=== PATIENT | male | born 1965 | race Caucasian/White ===

== ENCOUNTER 2022-08-31 12:43 | Inpatient (IN) | payer MEDICARE, MEDICAID ==
[~2022-08-31] VITALS: Ht 172.7 cm; Wt 93.3 kg
[2022-08-31 13:53] LABS: Basophils # (auto) 0 10 ^3/uL (0-0.2); Basophils % (auto) 0.4 % (0.0-2.0); Eosinophils # (auto) 0.4 10 ^3/uL (0-0.8); Hemoglobin 7.3 g/dL (13.5-17.5); Lymphocytes # (auto) 0.6 10 ^3/uL (0.4-5.4); Monocytes # (auto) 0.6 10 ^3/uL (0-1.3)
[2022-08-31 13:56] LABS: Eosinophils % (auto) 6.7 % (0.0-7.0); Hematocrit 21.6 % (41.0-53.0); Lymphocytes % (auto) 8.9 % (10.0-50.0); Mean Corpuscular Hemoglobin 33.2 pg (28.0-32.0); Mean Corpuscular Hgb Conc. 33.8 g/dL (32.0-36.0); Mean Corpuscular Volume 98.2 fL (80.0-100.0); Monocytes % (auto) 9.1 % (0.0-12.0); Neutrophils % (auto) 74.9 % (37.0-80.0); Nucleated Red Blood Cells % 0.1 %; White Blood Cell 6.7 10^3/uL (4.4-10.8)
[2022-08-31 14:20] LABS: Potassium 4.4 mmol/L (3.5-5.1)
[2022-08-31 14:21] LABS: Albumin 2.8 g/dL (3.4-5.0); BUN/Creatinine Ratio 6.9 (10.0-20.0); Calcium 8.8 mg/dL (8.5-10.1); Total Protein 7.6 g/dL (6.4-8.2)
[2022-08-31] MEDS ORDERED: AZITHROMYCIN 500MG/ 250ML 250 ML IV ONE (16:30)
[2022-08-31] MEDS ORDERED: cefTRIAXone 1GM/50ML D5W 50 ML IV ONE (16:30)
[2022-08-31] MEDS ORDERED: LABETALOL HCL 5 MG/ML 4ML SYRINGE IV ONE (16:45)
[2022-08-31] MEDS ORDERED: IPRATROPIUM BROM 0.5 MG/2.5ML INH SOL NEB PRN (17:15)
[2022-08-31] MEDS ORDERED: ALBUTEROL SULF 2.5 MG/0.5ML(0.5%) NEB SOLN NEB PRN (17:15)
[2022-08-31] MEDS ORDERED: MORPHINE SULFATE INJ 2 MG/ml SYRG IV PRN (17:15)
[2022-08-31] MEDS ORDERED: NITROGLYCERIN 0.4 MG SL TAB SL PRN (17:15)
[2022-08-31] MEDS: hydrALAZINE HCL 20 MG/ML VL IV PRN (17:39)
[2022-08-31] MEDS: IPRATROPIUM BROM 0.5 MG/2.5ML INH SOL NEB SCH (18:00)
[2022-08-31] MEDS: ALBUTEROL SULF 2.5 MG/0.5ML(0.5%) NEB SOLN NEB SCH (18:00)
[2022-08-31 18:02] VITALS: BP 187/84
[2022-08-31] MEDS ORDERED: CLON0.1T PO (18:15)
[2022-08-31] MEDS ORDERED: APIX5TAB PO (18:15)
[2022-08-31] MEDS ORDERED: PANT40TA2 PO (18:15)
[2022-08-31] MEDS ORDERED: CARV25TA55 PO (18:15)
[2022-08-31 18:17] LABS: Cholesterol 154 mg/dL (< 200)
[2022-08-31 18:19] LABS: HDL Cholesterol 25 mg/dL (40-59); LDL Cholesterol 120 mg/dL (< 100); Triglycerides 88 mg/dL (< 150)
[2022-08-31] MEDS: ONDANSETRON HCL 4 MG/2 ML VIAL IV PRN (22:33)
[2022-08-31] MEDS: HEPARIN SODIUM (PORCINE) 5000 UNITS/ML 1ML VIAL SC SCH (22:47)
[2022-09-01] MEDS: ALBUTEROL SULF 2.5 MG/0.5ML(0.5%) NEB SOLN NEB SCH ×4 (00:05→18:50)
[2022-09-01] MEDS: IPRATROPIUM BROM 0.5 MG/2.5ML INH SOL NEB SCH ×4 (00:05→18:50)
[2022-09-01 05:37] LABS: Basophils # (auto) 0 10 ^3/uL (0-0.2); Eosinophils # (auto) 0.4 10 ^3/uL (0-0.8); Hemoglobin 7.2 g/dL (13.5-17.5); Lymphocytes # (auto) 0.6 10 ^3/uL (0.4-5.4); Monocytes # (auto) 0.6 10 ^3/uL (0-1.3); Monocytes % (auto) 9.5 % (0.0-12.0); Neutrophils # (auto) 4.3 10 ^3/uL (1.6-8.6); Red Cell Distribution Width 15.6 % (11.8-14.3)
[2022-09-01 05:41] LABS: Basophils % (auto) 0.7 % (0.0-2.0); Eosinophils % (auto) 6.9 % (0.0-7.0); Hematocrit 20.5 % (41.0-53.0); Lymphocytes % (auto) 9.7 % (10.0-50.0); Mean Corpuscular Hemoglobin 33.4 pg (28.0-32.0); Mean Corpuscular Hgb Conc. 35.1 g/dL (32.0-36.0); Mean Corpuscular Volume 95.2 fL (80.0-100.0); Neutrophils % (auto) 73.2 % (37.0-80.0); Red Blood Cells 2.16 10^6/uL (4.5-5.90); White Blood Cell 5.8 10^3/uL (4.4-10.8)
[2022-09-01 06:03] LABS: % Iron Saturation 34.5 % (20-55)
[2022-09-01 06:05] LABS: Albumin 2.8 g/dL (3.4-5.0); Calcium 8.5 mg/dL (8.5-10.1); Potassium 4.4 mmol/L (3.5-5.1)
[2022-09-01 06:10] LABS: BUN/Creatinine Ratio 6.8 (10.0-20.0); Bilirubin, Total 1.7 mg/dL (0.2-1.0); Total Protein 7.5 g/dL (6.4-8.2)
[2022-09-01] MEDS: cefTRIAXone 1GM/50ML D5W 50 ML IV SCH (09:54)
[2022-09-01] MEDS: ONDANSETRON HCL 4 MG/2 ML VIAL IV PRN (09:55)
[2022-09-01] MEDS: HEPARIN SODIUM (PORCINE) 5000 UNITS/ML 1ML VIAL SC SCH ×2 (09:56→21:54)
[2022-09-01] MEDS: AZITHROMYCIN 500MG/ 250ML 250 ML IV SCH (13:41)
[2022-09-01 14:39] VITALS: BP 105/44
[2022-09-01 16:00] VITALS: BP 105/44
[2022-09-01 16:52] LABS: Free T4 (Free Thyroxine) 1.24 ng/dL (0.89-1.76)
[2022-09-01 16:53] LABS: Folate (Folic Acid) 7.47 ng/mL (5.38-24)
[2022-09-01 17:00] VITALS: BP 158/74
[2022-09-01] MEDS: hydrALAZINE HCL 20 MG/ML VL IV PRN (18:16)
[2022-09-01] MEDS ORDERED: EPOETIN ALFA-EPBX 4,000 UNIT/ML VIAL SC ONE (21:00)
[2022-09-01 22:00] VITALS: BP 138/63
[2022-09-02] VITALS (8 sets, daily range): BP systolic 116–182; BP diastolic 51–85
[2022-09-02] MEDS: IPRATROPIUM BROM 0.5 MG/2.5ML INH SOL NEB SCH ×4 (00:56→18:39)
[2022-09-02] MEDS: ALBUTEROL SULF 2.5 MG/0.5ML(0.5%) NEB SOLN NEB SCH ×4 (00:56→18:39)
[2022-09-02] MEDS: LEVOTHYROXINE SODIUM 25 MCG TAB PO SCH (06:20)
[2022-09-02 06:36] LABS: Basophils # (auto) 0 10 ^3/uL (0-0.2); Basophils % (auto) 0.5 % (0.0-2.0); Hemoglobin 7.2 g/dL (13.5-17.5); Lymphocytes # (auto) 0.6 10 ^3/uL (0.4-5.4); Neutrophils # (auto) 3.8 10 ^3/uL (1.6-8.6); Red Cell Distribution Width 15.7 % (11.8-14.3); White Blood Cell 5.4 10^3/uL (4.4-10.8)
[2022-09-02 06:38] LABS: Eosinophils # (auto) 0.3 10 ^3/uL (0-0.8); Hematocrit 21.1 % (41.0-53.0); Lymphocytes % (auto) 11.1 % (10.0-50.0); Mean Corpuscular Hemoglobin 32.5 pg (28.0-32.0); Mean Corpuscular Volume 95.7 fL (80.0-100.0); Monocytes # (auto) 0.7 10 ^3/uL (0-1.3); Monocytes % (auto) 12.4 % (0.0-12.0); Red Blood Cells 2.21 10^6/uL (4.5-5.90)
[2022-09-02] MEDS: ASPirin 81 mg TAB PO SCH (09:18)
[2022-09-02] MEDS: cloNIDine HCL 0.1 MG TAB PO PRN (09:20)
[2022-09-02] MEDS: cefTRIAXone 1GM/50ML D5W 50 ML IV SCH (09:24)
[2022-09-02] MEDS: AZITHROMYCIN 500MG/ 250ML 250 ML IV SCH (09:24)
[2022-09-02] MEDS: HEPARIN SODIUM (PORCINE) 5000 UNITS/ML 1ML VIAL SC SCH ×2 (09:35→22:36)
[2022-09-02 12:04] LABS: Hepatitis A Ab IgM Negative; Hepatitis B Core IgM Negative
[2022-09-02 12:05] LABS: Hepatitis C Antibody Negative (Negative)
[2022-09-02] MEDS ORDERED: METOPROLOL SUCCINATE XL 50 MG TAB PO ONE (12:45)
[2022-09-02] MEDS ORDERED: LOSARTAN POTASSIUM 25 MG TAB PO ONE (12:45)
[2022-09-02] MEDS: hydrALAZINE HCL 20 MG/ML VL IV PRN (16:51)
[2022-09-02] MEDS: ATORVASTATIN 20 MG TAB PO SCH (22:29)
[2022-09-03] VITALS (11 sets, daily range): BP systolic 119–182; BP diastolic 60–95
[2022-09-03] MEDS: ALBUTEROL SULF 2.5 MG/0.5ML(0.5%) NEB SOLN NEB SCH ×4 (00:23→19:01)
[2022-09-03] MEDS: IPRATROPIUM BROM 0.5 MG/2.5ML INH SOL NEB SCH ×4 (00:23→19:01)
[2022-09-03] MEDS: LEVOTHYROXINE SODIUM 25 MCG TAB PO SCH (06:47)
[2022-09-03 07:12] LABS: Basophils # (auto) 0 10 ^3/uL (0-0.2); Eosinophils # (auto) 0.5 10 ^3/uL (0-0.8); Hemoglobin 7.3 g/dL (13.5-17.5); Lymphocytes # (auto) 0.7 10 ^3/uL (0.4-5.4); Lymphocytes % (auto) 11.3 % (10.0-50.0); Monocytes # (auto) 0.7 10 ^3/uL (0-1.3); Neutrophils # (auto) 4.2 10 ^3/uL (1.6-8.6); Nucleated Red Blood Cells % 0.1 %
[2022-09-03 07:14] LABS: Basophils % (auto) 0.6 % (0.0-2.0); Eosinophils % (auto) 7.9 % (0.0-7.0); Hematocrit 21.6 % (41.0-53.0); Mean Corpuscular Hemoglobin 32.6 pg (28.0-32.0); Mean Corpuscular Hgb Conc. 33.6 g/dL (32.0-36.0); Mean Corpuscular Volume 96.8 fL (80.0-100.0); Monocytes % (auto) 11.5 % (0.0-12.0); Neutrophils % (auto) 68.7 % (37.0-80.0); Red Blood Cells 2.23 10^6/uL (4.5-5.90); Red Cell Distribution Width 15.8 % (11.8-14.3); White Blood Cell 6.1 10^3/uL (4.4-10.8)
[2022-09-03 07:23] LABS: BUN/Creatinine Ratio 5.6 (10.0-20.0); Calcium 8.4 mg/dL (8.5-10.1); Potassium 4.8 mmol/L (3.5-5.1)
[2022-09-03] MEDS: HEPARIN SODIUM (PORCINE) 5000 UNITS/ML 1ML VIAL SC SCH ×2 (08:17→21:16)
[2022-09-03] MEDS: cefTRIAXone 1GM/50ML D5W 50 ML IV SCH (08:33)
[2022-09-03] MEDS: ASPirin 81 mg TAB PO SCH (08:33)
[2022-09-03] MEDS ORDERED: LOSARTAN POTASSIUM 25 MG TAB PO SCH (10:00)
[2022-09-03] MEDS: AZITHROMYCIN 500MG/ 250ML 250 ML IV SCH (10:29)
[2022-09-03] MEDS: METOPROLOL SUCCINATE XL 50 MG TAB PO SCH (10:30)
[2022-09-03 10:57] LABS: INR 1.39 (0.9-1.15); Partial Thromboplastin Time 32.7 sec (24.6-33.4)
[2022-09-03] MEDS: hydrALAZINE HCL 20 MG/ML VL IV PRN (14:51)
[2022-09-03] MEDS ORDERED: ANGIOMAX 250 MG VIAL IV ONE (15:58)
[2022-09-03] MEDS ORDERED: MIDAZOLAM HCL 2MG/2ML 2ml VIAL (1mg/ml) ONE (15:58)
[2022-09-03] MEDS ORDERED: fentaNYL CITRATE 100 MCG/2 ML VL ONE (15:58)
[2022-09-03] MEDS ORDERED: LIDOCAINE 2%HCL (LOCAL ANESTH.) INJ 20ML MDV ONE (15:59)
[2022-09-03] MEDS ORDERED: SODIUM CHL 0.9% 0 ML ONE (15:59)
[2022-09-03] MEDS ORDERED: IOHEXOL 350 MG/ML 500ML BOTTLE IJ ONE (16:01)
[2022-09-03] MEDS: ATORVASTATIN 20 MG TAB PO SCH (21:12)
[2022-09-03] MEDS: SACUBITRIL-VALSARTAN 24mg/26mg TAB PO SCH (21:12)
[2022-09-03] MEDS: ONDANSETRON HCL 4 MG/2 ML VIAL IV PRN (21:16)
[2022-09-04] MEDS: ALBUTEROL SULF 2.5 MG/0.5ML(0.5%) NEB SOLN NEB SCH ×4 (00:33→19:24)
[2022-09-04] MEDS: IPRATROPIUM BROM 0.5 MG/2.5ML INH SOL NEB SCH ×4 (00:34→19:24)
[2022-09-04] MEDS: ONDANSETRON HCL 4 MG/2 ML VIAL IV PRN ×3 (02:49→13:29)
[2022-09-04 05:00] VITALS: BP_SYST 151; BP_SYST 160; BP_SYST 162; BP_DIAS 74; BP_DIAS 81; BP_DIAS 90
[2022-09-04] MEDS: LEVOTHYROXINE SODIUM 25 MCG TAB PO SCH (06:34)
[2022-09-04 09:00] VITALS: BP_SYST 165; BP_SYST 168; BP_SYST 173; BP_DIAS 70; BP_DIAS 76; BP_DIAS 82
[2022-09-04] MEDS: cefTRIAXone 1GM/50ML D5W 50 ML IV SCH (09:08)
[2022-09-04] MEDS: ASPirin 81 mg TAB PO SCH (09:10)
[2022-09-04] MEDS: AZITHROMYCIN 500MG/ 250ML 250 ML IV SCH (09:10)
[2022-09-04] MEDS: SACUBITRIL-VALSARTAN 24mg/26mg TAB PO SCH ×2 (09:10→22:32)
[2022-09-04] MEDS: METOPROLOL SUCCINATE XL 50 MG TAB PO SCH (09:10)
[2022-09-04] MEDS: HEPARIN SODIUM (PORCINE) 5000 UNITS/ML 1ML VIAL SC SCH ×2 (09:14→22:38)
[2022-09-04 09:54] LABS: BUN/Creatinine Ratio 5.4 (10.0-20.0); Calcium 8.5 mg/dL (8.5-10.1); Potassium 4.8 mmol/L (3.5-5.1)
[2022-09-04 12:48] LABS: Urine Bacteria NONE SEEN /hpf (None Seen); Urine Blood 2+ /uL (Negative); Urine Budding Yeast MODERATE /hpf (None Seen); Urine Specific Gravity 1.017 (1.001-1.035); Urine WBC 2862 /hpf (0 - 3); Urine WBC Clumps PRESENT /hpf (None Seen)
[2022-09-04 13:00] VITALS: BP_SYST 139; BP_SYST 150; BP_SYST 167; BP_DIAS 65; BP_DIAS 76; BP_DIAS 83
[2022-09-04 17:00] VITALS: BP_SYST 136; BP_SYST 145; BP_SYST 155; BP_DIAS 66; BP_DIAS 81
[2022-09-04] MEDS: PROMETHAZINE HCL 25 MG/ML 1ML IV PRN (17:48)
[2022-09-04 22:00] VITALS: BP_SYST 130; BP_SYST 137; BP_SYST 172; BP_DIAS 60; BP_DIAS 68; BP_DIAS 74
[2022-09-04] MEDS: ATORVASTATIN 20 MG TAB PO SCH (22:32)
[2022-09-04] MEDS: hydrALAZINE HCL 20 MG/ML VL IV PRN (23:53)
[2022-09-05] MEDS: PROMETHAZINE HCL 25 MG/ML 1ML IV PRN (02:33)
[2022-09-05 05:00] VITALS: BP_SYST 150; BP_SYST 154; BP_SYST 155; BP_SYST 173; BP_DIAS 65; BP_DIAS 71; BP_DIAS 77; BP_DIAS 83
[2022-09-05] MEDS: LEVOTHYROXINE SODIUM 25 MCG TAB PO SCH (06:30)
[2022-09-05] MEDS: ALBUTEROL SULF 2.5 MG/0.5ML(0.5%) NEB SOLN NEB SCH ×3 (06:44→18:00)
[2022-09-05] MEDS: IPRATROPIUM BROM 0.5 MG/2.5ML INH SOL NEB SCH ×3 (06:44→18:00)
[2022-09-05] MEDS ORDERED: SODIUM CHL 0.9% 1000 ML BAG XX ONE (07:00)
[2022-09-05] MEDS: SACUBITRIL-VALSARTAN 24mg/26mg TAB PO SCH ×2 (08:56→22:33)
[2022-09-05] MEDS: ASPirin 81 mg TAB PO SCH (08:56)
[2022-09-05] MEDS: METOPROLOL SUCCINATE XL 50 MG TAB PO SCH (08:57)
[2022-09-05 09:00] VITALS: BP 168/81
[2022-09-05] MEDS: cefTRIAXone 1GM/50ML D5W 50 ML IV SCH (09:56)
[2022-09-05] MEDS: ONDANSETRON HCL 4 MG/2 ML VIAL IV PRN (10:52)
[2022-09-05] MEDS: AZITHROMYCIN 500MG/ 250ML 250 ML IV SCH (11:41)
[2022-09-05] MEDS ORDERED: DOCUSATE SOD 100 MG CAP PO PRN (12:00)
[2022-09-05] MEDS ORDERED: POLYETHYLENE GLYCOL 17 GM PWDR PO PRN (12:00)
[2022-09-05] MEDS ORDERED: DOCUSATE SOD 100 MG CAP PO ONE (12:00)
[2022-09-05] MEDS ORDERED: POLYETHYLENE GLYCOL 17 GM PWDR PO ONE (12:00)
[2022-09-05] MEDS: HEPARIN SODIUM (PORCINE) 5000 UNITS/ML 1ML VIAL SC SCH ×2 (12:18→22:30)
[2022-09-05 13:00] VITALS: BP 166/61
[2022-09-05] MEDS: cloNIDine HCL 0.1 MG TAB PO PRN (13:10)
[2022-09-05 17:00] VITALS: BP 172/70
[2022-09-05] MEDS ORDERED: EPOETIN ALFA-EPBX 4,000 UNIT/ML VIAL SC ONE (21:00)
[2022-09-05 22:00] VITALS: BP 169/76
[2022-09-05] MEDS: ATORVASTATIN 20 MG TAB PO SCH (22:33)
[2022-09-06] MEDS: hydrALAZINE HCL 20 MG/ML VL IV PRN ×2 (00:01→05:58)
[2022-09-06 05:00] VITALS: BP 151/67
[2022-09-06 05:54] LABS: BUN/Creatinine Ratio 4.5 (10.0-20.0); Calcium 8.7 mg/dL (8.5-10.1); Potassium 4.3 mmol/L (3.5-5.1)
[2022-09-06] MEDS: LEVOTHYROXINE SODIUM 25 MCG TAB PO SCH (05:59)
[2022-09-06] MEDS: IPRATROPIUM BROM 0.5 MG/2.5ML INH SOL NEB SCH ×3 (06:29→20:01)
[2022-09-06] MEDS: ALBUTEROL SULF 2.5 MG/0.5ML(0.5%) NEB SOLN NEB SCH ×3 (06:29→20:01)
[2022-09-06 08:00] VITALS: BP 153/77
[2022-09-06 09:00] VITALS: BP 153/77
[2022-09-06] MEDS: cefTRIAXone 1GM/50ML D5W 50 ML IV SCH (09:05)
[2022-09-06] MEDS: SACUBITRIL-VALSARTAN 24mg/26mg TAB PO SCH ×2 (09:07→21:33)
[2022-09-06] MEDS: METOPROLOL SUCCINATE XL 50 MG TAB PO SCH (09:08)
[2022-09-06] MEDS: ASPirin 81 mg TAB PO SCH (09:08)
[2022-09-06] MEDS: HEPARIN SODIUM (PORCINE) 5000 UNITS/ML 1ML VIAL SC SCH ×2 (09:19→21:42)
[2022-09-06] MEDS: AZITHROMYCIN 500MG/ 250ML 250 ML IV SCH (10:17)
[2022-09-06 13:00] VITALS: BP 148/71
[2022-09-06 17:00] VITALS: BP 140/71
[2022-09-06 21:00] VITALS: BP 140/71
[2022-09-06] MEDS: ATORVASTATIN 20 MG TAB PO SCH (21:34)
[2022-09-07] MEDS: IPRATROPIUM BROM 0.5 MG/2.5ML INH SOL NEB SCH ×2 (06:06→12:50)
[2022-09-07] MEDS: ALBUTEROL SULF 2.5 MG/0.5ML(0.5%) NEB SOLN NEB SCH ×2 (06:06→12:50)
[2022-09-07 06:08] VITALS: BP 150/76
[2022-09-07 06:36] LABS: Basophils # (auto) 0 10 ^3/uL (0-0.2); Basophils % (auto) 0.8 % (0.0-2.0); Eosinophils # (auto) 0.4 10 ^3/uL (0-0.8); Eosinophils % (auto) 7.2 % (0.0-7.0); Hematocrit 22.2 % (41.0-53.0); Hemoglobin 7.7 g/dL (13.5-17.5); Lymphocytes # (auto) 0.7 10 ^3/uL (0.4-5.4); Lymphocytes % (auto) 12.2 % (10.0-50.0); Mean Corpuscular Hemoglobin 33.7 pg (28.0-32.0); Mean Corpuscular Hgb Conc. 34.8 g/dL (32.0-36.0); Mean Corpuscular Volume 96.8 fL (80.0-100.0); Monocytes # (auto) 0.7 10 ^3/uL (0-1.3); Monocytes % (auto) 12.6 % (0.0-12.0); Neutrophils # (auto) 3.8 10 ^3/uL (1.6-8.6); Neutrophils % (auto) 67.2 % (37.0-80.0); Nucleated Red Blood Cells % 0.5 %; Red Blood Cells 2.29 10^6/uL (4.5-5.90); Red Cell Distribution Width 15.9 % (11.8-14.3); White Blood Cell 5.6 10^3/uL (4.4-10.8)
[2022-09-07] MEDS: LEVOTHYROXINE SODIUM 25 MCG TAB PO SCH (06:38)
[2022-09-07] MEDS ORDERED: SODIUM CHL 0.9% 1000 ML BAG XX ONE (07:00)
[2022-09-07 07:09] LABS: BUN/Creatinine Ratio 4.6 (10.0-20.0); Potassium 4.4 mmol/L (3.5-5.1)
[2022-09-07 08:00] VITALS: BP 180/86
[2022-09-07 09:00] VITALS: BP 180/86
[2022-09-07] MEDS: cefTRIAXone 1GM/50ML D5W 50 ML IV SCH (09:11)
[2022-09-07] MEDS: ASPirin 81 mg TAB PO SCH (09:12)
[2022-09-07] MEDS: SACUBITRIL-VALSARTAN 24mg/26mg TAB PO SCH (10:00)
[2022-09-07] MEDS: METOPROLOL SUCCINATE XL 50 MG TAB PO SCH (10:00)
[2022-09-07] MEDS: HEPARIN SODIUM (PORCINE) 5000 UNITS/ML 1ML VIAL SC SCH (10:00)
[2022-09-07 13:00] VITALS: BP_SYST 110; BP_SYST 157; BP_DIAS 55; BP_DIAS 72
[2022-09-07 13:32] VITALS: BP 157/72
[2022-09-07 16:56] VITALS: BP 167/77
[2022-09-07] MEDS ORDERED: EPOETIN ALFA-EPBX 10,000 UNIT/1ML VIAL SC ONE (21:00)
== END 2022-09-07 17:00 | disposition home or self-care (01) | DRG 286 ==
LOC: EDBD 12:43 → ER 12:43 → TELE 17:25 → TELE-CENTR 09-01 14:27
PROVIDERS: ADMIT Registered Nurse; ATTEND Internal Medicine
PROC: 5A1D70Z Performance of Urinary Filtration, Intermittent, Less than 6 Hours Per Day (ICD-10-PCS; 2022-09-01)
PROC: 4A023N7 Measurement of Cardiac Sampling and Pressure, Left Heart, Percutaneous Approach (ICD-10-PCS; principal; 2022-09-03)
PROC: B2111ZZ Fluoroscopy of Multiple Coronary Arteries using Low Osmolar Contrast (ICD-10-PCS; 2022-09-03)
PROC: B2151ZZ Fluoroscopy of Left Heart using Low Osmolar Contrast (ICD-10-PCS; 2022-09-03)
PROC: B41C1ZZ Fluoroscopy of Pelvic Arteries using Low Osmolar Contrast (ICD-10-PCS; 2022-09-03)
PROC: 5A1D70Z Performance of Urinary Filtration, Intermittent, Less than 6 Hours Per Day (ICD-10-PCS; 2022-09-05)
DX: I13.2 Hypertensive heart and chronic kidney disease with heart failure and with stage 5 chronic kidney disease, or end stage renal disease (principal); E43 Unspecified severe protein-calorie malnutrition; I50.41 Acute combined systolic (congestive) and diastolic (congestive) heart failure; J18.9 Pneumonia, unspecified organism; N18.6 End stage renal disease; E66.01 Morbid (severe) obesity due to excess calories; D63.1 Anemia in chronic kidney disease; E11.22 Type 2 diabetes mellitus with diabetic chronic kidney disease; I07.1 Rheumatic tricuspid insufficiency; Z20.822 Contact with and (suspected) exposure to COVID-19; E78.5 Hyperlipidemia, unspecified; I27.20 Pulmonary hypertension, unspecified; R55 Syncope and collapse; I25.10 Atherosclerotic heart disease of native coronary artery without angina pectoris; Z86.73 Personal history of transient ischemic attack (TIA), and cerebral infarction without residual deficits; Z99.2 Dependence on renal dialysis; Z80.0 Family history of malignant neoplasm of digestive organs; Z80.7 Family history of other malignant neoplasms of lymphoid, hematopoietic and related tissues; Z79.899 Other long term (current) drug therapy; Z79.82 Long term (current) use of aspirin; Z95.5 Presence of coronary angioplasty implant and graft; Z95.810 Presence of automatic (implantable) cardiac defibrillator
CPT/HCPCS: 36415; 70450; 70551; 71045; 75736; 80048; 80053; 80061; 80074; 81001; 82607; 82746; 83036; 83540; 83550; 83605; 83615; 84439; 84443; 84484; 85025; 85045; 85610; 85730; 86850; 86900; 86901; 87040; 87086; 87205; 87426; 90935; 93005; 93306; 93458; 93886; 94640; 95819; 96374; 99152; G0378; J0696; J2250; J2405